=== PATIENT | female | born 1995 | race Caucasian/White ===

== ENCOUNTER 2022-03-13 12:01 | Emergency (ER) | payer OTHER ==
[~2022-03-13] VITALS: Ht 170.2 cm; Wt 67.1 kg
== END 2022-03-13 15:07 | disposition home or self-care (01) ==
LOC: ER 12:01
DX: R21 Rash and other nonspecific skin eruption (principal); X58.XXXA Exposure to other specified factors, initial encounter; Y93.15 Activity, underwater diving and snorkeling; Y92.832 Beach as the place of occurrence of the external cause